=== PATIENT | female | born 1960 | race Caucasian/White ===

== ENCOUNTER 2018-10-05 08:00 | Outpatient (CLI) | payer MEDICAID | END 2018-10-05 09:00 | disposition home or self-care (01) | LOC: D.MAMMO 08:00 | DX: Z12.31 Encounter for screening mammogram for malignant neoplasm of breast (principal) ==

== ENCOUNTER → 2020-02-21 18:45 | Outpatient (CLI) | payer OTHER | END | disposition home or self-care (01) | LOC: D.MAMMO 02-07 08:30 | PROVIDERS: ATTEND Family Medicine | DX: Z12.31 Encounter for screening mammogram for malignant neoplasm of breast (principal) ==

== ENCOUNTER → 2020-03-06 08:45 | Outpatient (CLI) | payer OTHER | END | disposition home or self-care (01) | LOC: D.US 08:30 | PROVIDERS: ATTEND Family Medicine | DX: R92.8 Other abnormal and inconclusive findings on diagnostic imaging of breast (principal) ==

== ENCOUNTER → 2020-03-14 07:46 | Outpatient (CLI) | payer OTHER | END | disposition home or self-care (01) | LOC: D.US 07:46 | PROVIDERS: ATTEND Family Medicine | DX: R92.8 Other abnormal and inconclusive findings on diagnostic imaging of breast (principal) ==

== ENCOUNTER 2020-12-16 18:37 | Observation (INO) | payer OTHER ==
[~2020-12-16] VITALS: Ht 149.9 cm; Wt 102.3 kg
[2020-12-16] MEDS ORDERED: HYDROCHLOROTHIA25 MG (19:03)
[2020-12-16] MEDS ORDERED: COZAAR25 MG (19:04)
[2020-12-16] MEDS ORDERED: LEXAPRO10 MG PO (19:05)
[2020-12-16] MEDS ORDERED: VIBRAMYCIN50 MG/5 ML (19:05)
--- NOTE | 2020-12-16 19:11 | NUR ---
PT REPORT TO ABY NESBITT
[2020-12-16 19:27] LABS: BASOPHILS 0.2 % (0-2); EOSINOPHILS 0.9 % (0-7); HEMATOCRIT 38.6 % (36.0-48.0); HEMOGLOBIN 13.2 g/dL (12-16); IMMATURE GRANULOCYTES 0.2 % (0-5); LYMPHOCYTE ABS# 1.39 10x3/uL (1.18-3.74); LYMPHOCYTES 10.5 % (15-50); MCH 30.2 pg (26.0-34.0); MCHC 34.2 g/dL (31.0-37.0); MCV 88.3 fL (80.0-100.0); MEAN PLATELET VOLUME 9.2 fL (7.4-10.4); MONOCYTES 5.4 % (2-11); NEUTROPHIL ABS# 10.99 10x3/uL (1.56-6.13); NEUTROPHILS 82.8 % (40-80); PLATELET COUNT 246 10x3/uL (130-400); RBC 4.37 10x6/uL (4.00-5.40); RDW 12.1 % (11.5-14.5); WBC 13.3 10x3/uL (4.8-10.8)
[2020-12-16 19:35] LABS: APTT 31.7 SECONDS (22.8-39.4); CALC OSMOLALITY 251 mosm/kg (275-300); CALCIUM 9.1 mg/dL (8.5-10.1); CARBON DIOXIDE 27.5 mmol/L (21.0-32.0); CHLORIDE - SERUM 92 mmol/L (98-107); CREATININE - SERUM 0.6 mg/dL (0.6-1.3); GLUCOSE 100 mg/dL (74-106); INR 1.04 (0.85-1.17); POTASSIUM - SERUM 3.5 mmol/L (3.5-5.1); PROTIME 12.6 SECONDS (11.6-15.0); SODIUM 125 mmol/L (136-145); UREA NITROGEN 12 mg/dL (7-18); eGFR NON AFRICAN AMERICAN > 90 mL/min (90-120)
[2020-12-16 19:43] LABS: ALBUMIN 4.2 g/dL (3.4-5.0); ALKALINE PHOSPHATASE 72 U/L (30-120); ALT (SGPT) 29 U/L (10-68); BILIRUBIN - TOTAL 0.45 mg/dL (0.2-1.3); PROTEIN - SERUM 7.5 g/dL (6.4-8.2)
[2020-12-16 23:01] VITALS: BP 109/43; Ht 149.9 cm; Wt 102.3 kg
[2020-12-16] MEDS ORDERED: ASPIRIN81 MG PO (23:16)
[2020-12-16] MEDS ORDERED: VITAMIN D325 MC1 PO (23:17)
[2020-12-16 23:35] LABS: CKMB 2.9 U/L (0.0-3.6); CREATINE KINASE 155 UL (21-215); MAGNESIUM - SERUM 1.8 mg/dL (1.8-2.4); TROPONIN-I < 0.017 ng/mL (0.000-0.060)
[2020-12-17] VITALS (10 sets, daily range): BP systolic 109–145; BP diastolic 43–94
--- NOTE | 2020-12-17 07:55 | NUR ---
PT RESTING QUIETLY IN BED. RESP EVEN AND UNLABORED. PT REPORTS PAIN TO RIGHT LOWER EXTREMITY 6/10 AT THIS TIME. DISCUSSED NEXT TIME PAIN MEDICATION COULD BE ADMINISTERED PER MD ORDERS. PT VOICES UNDERSTANDING AT THIS TIME. IV TO LEFT WRIST WITH NS @ 100ML/HR INFUSING VIA PUMP. SITE WITHOUT REDNESS OR EDEMA. CASTING WITH CARLINE WRAP TO RIGHT LOWER EXTREMITY IN PLACE. TOES WARM TO TOUCH GOOD CAP REFILL. DENIES FURTHER NEEDS AT THIS TIME. CL WITHIN REACH. ENCOURAGED TO CALL WITH NEEDS. CONTINUE POC
[2020-12-17 10:08] LABS: BASOPHILS 0.6 % (0-2); HEMATOCRIT 35.5 % (36.0-48.0); HEMOGLOBIN 11.6 g/dL (12-16); LYMPHOCYTE ABS# 1.33 10x3/uL (1.18-3.74); LYMPHOCYTES 25.1 % (15-50); MCH 29.4 pg (26.0-34.0); MCHC 32.7 g/dL (31.0-37.0); MCV 89.9 fL (80.0-100.0); MEAN PLATELET VOLUME 9.2 fL (7.4-10.4); MONOCYTES 8.9 % (2-11); NEUTROPHILS 62.4 % (40-80); PLATELET COUNT 228 10x3/uL (130-400); RBC 3.95 10x6/uL (4.00-5.40); RDW 12.3 % (11.5-14.5)
[2020-12-17 10:24] LABS: WBC 5.3 10x3/uL (4.8-10.8)
[2020-12-17 10:25] LABS: APTT 31.4 SECONDS (22.8-39.4); INR 1.08 (0.85-1.17)
[2020-12-17 10:33] LABS: ALBUMIN 3.5 g/dL (3.4-5.0); ALKALINE PHOSPHATASE 60 U/L (30-120); ALT (SGPT) 26 U/L (10-68); CALC OSMOLALITY 261 mosm/kg (275-300); CALCIUM 8.4 mg/dL (8.5-10.1); CARBON DIOXIDE 26.1 mmol/L (21.0-32.0); CHLORIDE - SERUM 98 mmol/L (98-107); CREATININE - SERUM 0.7 mg/dL (0.6-1.3); GLUCOSE 101 mg/dL (74-106); POTASSIUM - SERUM 3.9 mmol/L (3.5-5.1); PROTEIN - SERUM 6.6 g/dL (6.4-8.2); SODIUM 131 mmol/L (136-145); UREA NITROGEN 11 mg/dL (7-18); eGFR NON AFRICAN AMERICAN 90 mL/min (90-120)
--- NOTE | 2020-12-17 20:40 | NUR ---
ANESTHESIA AT BEDSIDE FOR NERVE BLOCK TO LT LEG
--- NOTE | 2020-12-17 21:21 | NUR ---
REC'D PATIENT TO ROOM 1210 FROM RECOVERY. PATIENT A&O AT THIS TIME. PATIENT ON 3L OXYGEN, VSS. ELEVATED RLE X2 PILLOWS AND PLACED LARGE ICE PACK. PLACED SCD TO LEFT LEG. PATIENT DENIES OTHER NEEDS AT THIS TIME.
--- NOTE | 2020-12-17 22:45 | NUR ---
ADMINISTERED MEDS PER ORDERS. PATIENT JIAN WELL. ENCOURAGED TO CALL WITH NEEDS.
[2020-12-18 00:05] VITALS: BP 136/55
[2020-12-18 00:42] VITALS: BP 107/44
[2020-12-18 02:05] VITALS: BP 134/68
[2020-12-18 04:00] VITALS: BP 132/70
--- NOTE | 2020-12-18 06:45 | NUR ---
PT RESTING QUIETLY IN BED WITH RIGHT LOWER EXTREMITY ELEVATED. PT REPORTS PAIN 5/10 AT THIS TIME. RIGHT LOWER EXTREMITY WARM TO TOUCH, PT ABLE TO MOVE LOWER EXTREMITY. DRESSING C/D/I. IV TO LEFT HAND WITH 1/2 NS @ 50ML/HR INFUSING VIA PUMP. SITE WITHOUT REDNESS OR EDEMA. DENIES FURTHER NEEDS AT THIS TIME. CL WITHIN REACH. ENCOURAGED TO CALL WITH NEEDS. CONTINUE POC
[2020-12-18 07:15] LABS: ALBUMIN 3.4 g/dL (3.4-5.0); ALKALINE PHOSPHATASE 56 U/L (30-120); ALT (SGPT) 25 U/L (10-68); BILIRUBIN - TOTAL 0.35 mg/dL (0.2-1.3); CALC OSMOLALITY 267 mosm/kg (275-300); CARBON DIOXIDE 25.5 mmol/L (21.0-32.0); CHLORIDE - SERUM 100 mmol/L (98-107); CREATININE - SERUM 0.7 mg/dL (0.6-1.3); GLUCOSE 145 mg/dL (74-106); PROTEIN - SERUM 6.3 g/dL (6.4-8.2); SODIUM 133 mmol/L (136-145); UREA NITROGEN 10 mg/dL (7-18); eGFR NON AFRICAN AMERICAN 90 mL/min (90-120)
[2020-12-18 07:16] LABS: POTASSIUM - SERUM 4.5 mmol/L (3.5-5.1)
[2020-12-18 07:26] LABS: BASOPHILS 0 % (0-2); EOSINOPHILS 0 % (0-7); HEMATOCRIT 35.1 % (36.0-48.0); HEMOGLOBIN 11.3 g/dL (12-16); IMMATURE GRANULOCYTES 0.1 % (0-5); LYMPHOCYTE ABS# 0.51 10x3/uL (1.18-3.74); LYMPHOCYTES 6.7 % (15-50); MCH 29.5 pg (26.0-34.0); MCHC 32.2 g/dL (31.0-37.0); MCV 91.6 fL (80.0-100.0); MEAN PLATELET VOLUME 9.7 fL (7.4-10.4); MONOCYTES 2.9 % (2-11); NEUTROPHIL ABS# 6.91 10x3/uL (1.56-6.13); NEUTROPHILS 90.3 % (40-80); PLATELET COUNT 252 10x3/uL (130-400); RBC 3.83 10x6/uL (4.00-5.40); RDW 12.4 % (11.5-14.5); WBC 7.7 10x3/uL (4.8-10.8)
--- NOTE | 2020-12-18 07:44 | OP ---
PATIENT NAME: VALENTINE DOE MEDICAL RECORD: [id number] :56 LOCATION:D.M3 D.1210 ADMISSION DATE:12/16/20 SURGEON: HERO CAMEJO DO DATE OF OPERATION: 12/16/2020 PROCEDURE PERFORMED: Right bimalleolar ankle open reduction internal fixation. PREOPERATIVE DIAGNOSIS: Right bimalleolar ankle fracture. POSTOPERATIVE DIAGNOSIS: Right bimalleolar ankle fracture. INDICATIONS: Ms. Doe is a 60-year-old female who slipped in the mud yesterday and sustained an ankle bimalleolar fracture came to the ER, later in the evening and she was admitted overnight for pain control and for surgery today. I talked to her that we need to fix this due to the fact it was a bimalleolar fracture and very displaced, had some lateral subluxation of the talus. She is aware of the risks including infection, bleeding, damage to nerves in the area, including superficial peroneal nerve, malunion, nonunion, blood clots and even , failure of implants and she signed the consent. SURGEON: Hero Camejo MD DESCRIPTION OF PROCEDURE: The patient was taken to the operative suite, laid in the supine position, given general anesthetic and intubated. She was given 2 grams of Ancef preoperatively. The right lower extremity was prepped and draped in sterile fashion. Timeout was performed and everyone was in agreeance with the correct side, site, patient and procedure. I then exsanguinated the right lower extremity with an Esmarch, the tourniquet was inflated to 350 mmHg, was up for 30 minutes. I then made an incision along the lateral ankle over the fibula, made careful dissection down to the fracture, reduced it with a clamp. Placed a 6-hole Javad stainless steel plate on and locked it with 4 locking screws distally and then 3 shaft screws proximally, reduced the fracture and holding it nicely after the plate was confirmed to be in good position on AP and lateral. I then went to the medial side, but 2 percutaneous screws in the medial malleolus medially holding the medial malleolus reduced nicely. I then put a 44 and 42 cannulated screws. I put K-wires which were confirmed to be in good position on AP and lateral and having a nice reduction, reduced the medial malleolus very nicely. I then went to the lateral side again and put a clamp on the ankle joint with the foot in dorsiflexion, drilled and put a ZipTight across the ankle syndesmosis and cinched it down. I then stressed the syndesmosis and she did not have any medial clear space widening. I then got in lateral to ensure the hardware was in good position and it was. I then had removed all the K-wires and let the tourniquet down at 30 minutes. Pelon Heck, certified surgical bakery assistant then irrigated the incision and closed with 2-0 Vicryl in an inverted fashion on the lateral side and put Zipline on that, medial side with 2 poke holes, closed with 4-0 Monocryl in simple fashion. She then dressed with Adaptic, 4 x 4s, ABD on the heel and over the incision. A cast padding, Kerlix, cast padding and another layer of Kerlix and put a 4 x 30 splint on and secured with 6-inch Tony wrap. She was then awakened and taken to recovery in stable condition. BLOOD LOSS: Minimal. COMPLICATIONS: None. OPERATIVE REPORT [id number] VALENTINE DOE TRANSINT:[id number] Voice Confirmation ID: [id number] DOCUMENT ID: [id number] HERO CAMEJO DO at 0744 CC: [id number] DICTATION DATE: 12/17/202002 PATIENT FINANCIAL REPRESENTATIVE: 12/18/20 0452 ADM IN [facility] [address] [place] [address]
[2020-12-18 08:11] VITALS: BP 122/61
[2020-12-18] MEDS ORDERED: PERCOCET 5-3251 TAB PO (11:11)
[2020-12-18] MEDS ORDERED: BAYER CHEWABLE81 MG PO (11:11)
[2020-12-18] MEDS ORDERED: VISTARIL50 MG PO (11:11)
--- NOTE | 2020-12-18 12:34 | MORECARE ---
CASE MANAGEMENT DISCHARGE SUMMARY PATIENT: VALENTINE ABAD UNIT: [id number] ADM DATE: 12/16/20 AGE: 60 : 56 SEX: F ROOM/BED: D.1210 AUTHOR: PENNY LORENZO PHYSICIAN: REFERRING PHYSICIAN: JAKE SCOTT MD DATE OF SERVICE: 12/18/20 Discharge Plan Patient Name: VALENTINE ABAD Facility: [facility]:[place] : 1960 Planned Disposition: Home or Self Care Anticipated Discharge Date: Discharge Date: Expected LOS: Initial Reviewer: [email or web address] Initial Review Date: 12/16/2020 Generated: 12/18/20 1:34 pm External Providers External Provider: [employer] [facility] Next Contact Date: Service Request Date: Service Type: Resolution: Reviewer: Comments: [facility] Next Contact Date: Service Request Date: Service Type: Resolution: Reviewer: Comments: Patient Name: VALENTINE ABAD Page [phone] at 1234 All edits/amendments must be made on the electronic document DICTATION DATE: 12/18/20 1234 FIREWALL ENGINEER: WILLIAN 12/18/20 1234 RPT#: [id number] DC DATE: STATUS: ADM IN [facility] [address] [place] [address] END OF REPORT
--- NOTE | 2020-12-18 12:41 | MORECARE ---
CASE MANAGEMENT DISCHARGE SUMMARY PATIENT: VALENTINE ABAD UNIT: [id number] ADM DATE: 12/16/20 AGE: 60 : 56 SEX: F ROOM/BED: D.1210 AUTHOR: PENNY LORENZO PHYSICIAN: REFERRING PHYSICIAN: JAKE SCOTT MD DATE OF SERVICE: 12/18/20 Discharge Plan Patient Name: VALENTINE ABAD Facility: [facility]:[place] : 1960 Planned Disposition: Home or Self Care Anticipated Discharge Date: Discharge Date: Expected LOS: Initial Reviewer: [email or web address] Initial Review Date: 12/16/2020 Generated: 12/18/20 1:41 pm DCPIA - Discharge Planning Initial Assessment Updated by [email or web address]: Columba Motta on 12/18/20 12:35 pm * Is the patient Alert and Oriented? Yes * How many steps to enter\exit or inside your home? * PCP MARIA D * Pharmacy [facility] * Preadmission Environment Home with Family * ADLs Independent * Equipment None * List name and contact numbers for known caregivers / representatives who currently or will assist patient after discharge: DREW ( SPOUSE) [phone] * Verbal permission to speak to the caregivers and representatives has been obtained from the patient. N/A * Community resources currently utilized None * Additional services required to return to the preadmission environment? No * Can the patient safely return to the preadmission environment? Yes * Has this patient been hospitalized within the prior 30 days at any hospital? No Last DP export: 12/18/20 11:34 am Patient Name: VALENTINE ABAD Page [id number] at 1241 All edits/amendments must be made on the electronic document DICTATION DATE: 12/18/20 1241 WIRER: WILLIAN 12/18/20 1241 RPT#: [id number] DC DATE: STATUS: ADM IN [facility] [address] [place] [address] END OF REPORT
--- NOTE | 2020-12-18 12:55 | MORECARE ---
CASE MANAGEMENT DISCHARGE SUMMARY PATIENT: VALENTINE ABAD UNIT: [id number] ADM DATE: 12/16/20 AGE: 60 : 56 SEX: F ROOM/BED: D.1210 AUTHOR: PENNY LORENZO PHYSICIAN: REFERRING PHYSICIAN: JAKE SCOTT MD DATE OF SERVICE: 12/18/20 Discharge Plan Patient Name: VALENTINE ABAD Facility: [facility]:[place] : 1960 Planned Disposition: Home or Self Care Anticipated Discharge Date: Discharge Date: Expected LOS: Initial Reviewer: [email or web address] Initial Review Date: 12/16/2020 Generated: 12/18/20 1:55 pm Comments DCP- Discharge Planning Updated by [email or web address]: Columba Motta on 12/18/20 11:[address] Patient Name: VALENTINE ABAD Admission Status: ER Accout number: [id number] Admission Date: 12-16-2020 : 1960 Admission Diagnosis: Attending: JAKE SCOTT Current LOS: 2 Anticipated DC Date: Planned Disposition: Home or Self Care Primary Insurance: [employer] INS EXCHANGE Discharge Planning Comments: CM met with patient to complete initial dc planning assessment. CM educated patient on the CM role and verbal consent given by patient to complete assessment. Patient lives at home with her where she was very independent with her care. At discharge patient plans to return home and feels this is a safe discharge. CM discussed availability of home health, rehab services, and medical equipment. Patient is adamant that she is going home and not going to [place] with her daughter. She stated that her will be with her at all times. She will be staying with her mother in law [address] is built at her home. That should happen tomorrow. She has alot of support at home from friends and family. She said she has access to a wheelchair, transfer chair, crutches. Her daughter has ordered a knee walker that should be delivered to her home today, I spoke with the patient about the need for a walker vs a rollator. The safest would be a walker for her home at this point. She thinks that she needs a walker and NOT a rollator like her daughter wants her to have. We talked about home health, PT, life alert. She is agreeable to if her insurance covers if 100%. I have reached out to [facility] to make sure of this. I have also sent a order to [employer] for a walker and that will be delivered to her hospital room. Patient stated that her daughters have good intentions but she is her own decision maker and will make the decisions for her. If her insurance does not cover HH at 100% she does not want it. She said her can help her with everything and is also willing to do so. Patient denied known discharge needs at this time. CM will continue to follow and will assist as needed with dc plans/needs Social Media Marketing Manager: Columba Motta DCPIA - Discharge Planning Initial Assessment Updated by [email or web address]: Columba Motta on 12/18/20 12:35 pm * Is the patient Alert and Oriented? Yes * How many steps to enter\exit or inside your home? * PCP MARIA D * Pharmacy [facility] * Preadmission Environment Home with Family * ADLs Independent * Equipment None * List name and contact numbers for known caregivers / representatives who currently or will assist patient after discharge: DREW ( SPOUSE) [phone] * Verbal permission to speak to the caregivers and representatives has been obtained from the patient. N/A * Community resources currently utilized None * Additional services required to return to the preadmission environment? No * Can the patient safely return to the preadmission environment? Yes * Has this patient been hospitalized within the prior 30 days at any hospital? No Last DP export: 12/18/20 11:41 am Patient Name: VALENTINE ABAD Page [phone] at 1255 All edits/amendments must be made on the electronic document DICTATION DATE: 12/18/20 1255 SHANK RANDER: WILLIAN 12/18/20 1255 RPT#: [id number] DC DATE: STATUS: ADM IN [facility] [address] [place] [address] END OF REPORT
--- NOTE | 2020-12-19 07:11 | MORECARE ---
CASE MANAGEMENT DISCHARGE SUMMARY PATIENT: VALENTINE ABAD UNIT: [id number] ADM DATE: 12/16/20 AGE: 60 : 56 SEX: F ROOM/BED: D.1210 AUTHOR: MAURADOC PHYSICIAN: REFERRING PHYSICIAN: JAKE SCOTT MD DATE OF SERVICE: 12/19/20 Discharge Plan Patient Name: VALENTINE ABAD Facility: [facility]:[place] : 1960 Planned Disposition: Home or Self Care Anticipated Discharge Date: Discharge Date: 12/18/2020 Expected LOS: 0 Initial Reviewer: [email or web address] Initial Review Date: 12/16/2020 Generated: 12/19/20 8:10 am DCP- Discharge Planning Updated by [email or web address]: Columba Motta on 12/18/20 11:[address] Patient Name: VALENTINE ABAD Admission Status: ER Accout number: [id number] Admission Date: 12-16-2020 : 1960 Admission Diagnosis: Attending: JAKE SCOTT Current LOS: 2 Anticipated DC Date: Planned Disposition: Home or Self Care Primary Insurance: [employer] INS EXCHANGE Discharge Planning Comments: CM met with patient to complete initial dc planning assessment. CM educated patient on the CM role and verbal consent given by patient to complete assessment. Patient lives at home with her where she was very independent with her care. At discharge patient plans to return home and feels this is a safe discharge. CM discussed availability of home health, rehab services, and medical equipment. Patient is adamant that she is going home and not going to [place] with her daughter. She stated that her will be with her at all times. She will be staying with her mother in law [address] is built at her home. That should happen tomorrow. She has alot of support at home from friends and family. She said she has access to a wheelchair, transfer chair, crutches. Her daughter has ordered a knee walker that should be delivered to her home today, I spoke with the patient about the need for a walker vs a rollator. The safest would be a walker for her home at this point. She thinks that she needs a walker and NOT a rollator like her daughter wants her to have. We talked about home health, PT, life alert. She is agreeable to if her insurance covers if 100%. I have reached out to [employer] to make sure of this. I have also sent a order to [employer] for a walker and that will be delivered to her hospital room. Patient stated that her daughters have good intentions but she is her own decision maker and will make the decisions for her. If her insurance does not cover HH at 100% she does not want it. She said her can help her with everything and is also willing to do so. Patient denied known discharge needs at this time. CM will continue to follow and will assist as needed with dc plans/needs Organ Pipe Voicer: Columba Motta DCPIA - Discharge Planning Initial Assessment Updated by [email or web address]: Columba Motta on 12/18/20 12:35 pm * Is the patient Alert and Oriented? Yes * How many steps to enter\exit or inside your home? * PCP MARIA D * Pharmacy [facility] * Preadmission Environment Home with Family * ADLs Independent * Equipment None * List name and contact numbers for known caregivers / representatives who currently or will assist patient after discharge: DREW ( SPOUSE) [phone] * Verbal permission to speak to the caregivers and representatives has been obtained from the patient. N/A * Community resources currently utilized None * Additional services required to return to the preadmission environment? No * Can the patient safely return to the preadmission environment? Yes * Has this patient been hospitalized within the prior 30 days at any hospital? No Last DP export: 12/18/20 11:55 am Patient Name: VALENTINE ABAD Page 12235 at 0711 All edits/amendments must be made on the electronic document DICTATION DATE: 12/19/20709 BARREL RIBS SOLDERER: WILLIAN 12/19/20709 RPT#: [id number] DC DATE:12/18/20 STATUS: DIS IN [address] [place] [address] END OF REPORT
--- NOTE | 2020-12-19 07:18 | MORECARE ---
CASE MANAGEMENT DISCHARGE SUMMARY PATIENT: VALENTINE ABAD UNIT: [id number] ADM DATE: 12/16/20 AGE: 60 : 56 SEX: F ROOM/BED: D.1210 AUTHOR: MAURADOC PHYSICIAN: REFERRING PHYSICIAN: JAKE SCOTT MD DATE OF SERVICE: 12/19/20 Discharge Plan Patient Name: VALENTINE ABAD Facility: [facility]:[place] : 1960 Planned Disposition: Home or Self Care Anticipated Discharge Date: Discharge Date: 12/18/2020 Expected LOS: 0 Initial Reviewer: [id number] Initial Review Date: 12/16/2020 Generated: 12/19/20 8:17 am DCP- Discharge Planning Updated by [email or web address]: Columba Motta on 12/18/20 11:[address] Patient Name: VALENTINE ABAD Admission Status: ER Accout number: [id number] Admission Date: 12-16-2020 : 1960 Admission Diagnosis: Attending: JAKE SCOTT Current LOS: 2 Anticipated DC Date: Planned Disposition: Home or Self Care Primary Insurance: [employer] INS EXCHANGE Discharge Planning Comments: CM met with patient to complete initial dc planning assessment. CM educated patient on the CM role and verbal consent given by patient to complete assessment. Patient lives at home with her where she was very independent with her care. At discharge patient plans to return home and feels this is a safe discharge. CM discussed availability of home health, rehab services, and medical equipment. Patient is adamant that she is going home and not going to [place] with her daughter. She stated that her will be with her at all times. She will be staying with her mother in law [address] is built at her home. That should happen tomorrow. She has alot of support at home from friends and family. She said she has access to a wheelchair, transfer chair, crutches. Her daughter has ordered a knee walker that should be delivered to her home today, I spoke with the patient about the need for a walker vs a rollator. The safest would be a walker for her home at this point. She thinks that she needs a walker and NOT a rollator like her daughter wants her to have. We talked about home health, PT, life alert. She is agreeable to if her insurance covers if 100%. I have reached out to [employer] to make sure of this. I have also sent a order to [employer] for a walker and that will be delivered to her hospital room. Patient stated that her daughters have good intentions but she is her own decision maker and will make the decisions for her. If her insurance does not cover HH at 100% she does not want it. She said her can help her with everything and is also willing to do so. Patient denied known discharge needs at this time. CM will continue to follow and will assist as needed with dc plans/needs Commercial Property Manager: Columba Motta DCPIA - Discharge Planning Initial Assessment Updated by [id number]: Columba Motta on 12/18/20 12:35 pm * Is the patient Alert and Oriented? Yes * How many steps to enter\exit or inside your home? * PCP MARIA D * Pharmacy [facility] * Preadmission Environment Home with Family * ADLs Independent * Equipment None * List name and contact numbers for known caregivers / representatives who currently or will assist patient after discharge: DREW ( SPOUSE) [phone] * Verbal permission to speak to the caregivers and representatives has been obtained from the patient. N/A * Community resources currently utilized None * Additional services required to return to the preadmission environment? No * Can the patient safely return to the preadmission environment? Yes * Has this patient been hospitalized within the prior 30 days at any hospital? No Last DP export: 12/18/20 11:55 am Patient Name: VALENTINE ABAD Page [id number] at 0718 All edits/amendments must be made on the electronic document DICTATION DATE: 12/19/20717 INTERMISSION COORDINATOR: WILLIAN 12/19/20717 RPT#: [id number] DC DATE:12/18/20 STATUS: DIS IN [facility] [address] [place] [address] END OF REPORT
--- NOTE | 2020-12-19 07:34 | MORECARE ---
CASE MANAGEMENT DISCHARGE SUMMARY PATIENT: VALENTINE ABAD UNIT: [id number] ADM DATE: 12/16/20 AGE: 60 : 56 SEX: F ROOM/BED: D.1210 AUTHOR: MAURA,DOC PHYSICIAN: REFERRING PHYSICIAN: JAKE SCOTT MD DATE OF SERVICE: 12/19/20 Discharge Plan Patient Name: VALENTINE ABAD Facility: [facility]:[place] : 1960 Planned Disposition: Home or Self Care Anticipated Discharge Date: Discharge Date: 12/18/2020 Expected LOS: 0 Initial Reviewer: [email or web address] Initial Review Date: 12/16/2020 Generated: 12/19/20 8:34 am Comments DCP- Discharge Planning Updated by [email or web address]: Columba Motta on 12/19/20 6:[address] RAY WITH [employer] CALLED AND STATED THAT THE PATIENT WOULD HAVE A 40% COPAY PER VISIT, SO SHE WILL NOT GET HOME HEALTH. DCP- Discharge Planning Updated by [email or web address]: Columba Motta on 12/18/20 11:[address] Patient Name: VALENTINE ABAD Admission Status: ER Accout number: [id number] Admission Date: 12-16-2020 : 1960 Admission Diagnosis: Attending: JAKE SCOTT Current LOS: 2 Anticipated DC Date: Planned Disposition: Home or Self Care Primary Insurance: [employer] [facility] INS EXCHANGE Discharge Planning Comments: CM met with patient to complete initial dc planning assessment. CM educated patient on the CM role and verbal consent given by patient to complete assessment. Patient lives at home with her where she was very independent with her care. At discharge patient plans to return home and feels this is a safe discharge. CM discussed availability of home health, rehab services, and medical equipment. Patient is adamant that she is going home and not going to [place] with her daughter. She stated that her will be with her at all times. She will be staying with her mother in law [address] is built at her home. That should happen tomorrow. She has alot of support at home from friends and family. She said she has access to a wheelchair, transfer chair, crutches. Her daughter has ordered a knee walker that should be delivered to her home today, I spoke with the patient about the need for a walker vs a rollator. The safest would be a walker for her home at this point. She thinks that she needs a walker and NOT a rollator like her daughter wants her to have. We talked about home health, PT, life alert. She is agreeable to if her insurance covers if 100%. I have reached out to [facility] to make sure of this. I have also sent a order to [employer] for a walker and that will be delivered to her hospital room. Patient stated that her daughters have good intentions but she is her own decision maker and will make the decisions for her. If her insurance does not cover HH at 100% she does not want it. She said her can help her with everything and is also willing to do so. Patient denied known discharge needs at this time. CM will continue to follow and will assist as needed with dc plans/needs Php Consultant: Columba Motta DCPIA - Discharge Planning Initial Assessment Updated by [email or web address]: Columba Motta on 12/18/20 12:35 pm * Is the patient Alert and Oriented? Yes * How many steps to enter\exit or inside your home? * PCP MARIA D * Pharmacy [facility] * Preadmission Environment Home with Family * ADLs Independent * Equipment None * List name and contact numbers for known caregivers / representatives who currently or will assist patient after discharge: DREW ( SPOUSE) [phone] * Verbal permission to speak to the caregivers and representatives has been obtained from the patient. N/A * Community resources currently utilized None * Additional services required to return to the preadmission environment? No * Can the patient safely return to the preadmission environment? Yes * Has this patient been hospitalized within the prior 30 days at any hospital? No Last DP export: 12/19/20 6:18 am Patient Name: VALENTINE ABAD Page [id number] at 0734 All edits/amendments must be made on the electronic document DICTATION DATE: 12/19/20733 OPERATING ROOM AIDE: WILLIAN 12/19/20733 RPT#: [id number] DC DATE:12/18/20 STATUS: DIS IN [facility] [address] [place] [address] END OF REPORT
== END 2020-12-18 16:46 | disposition home or self-care (01) ==
LOC: D.ER 18:37 → D.EDHOLD 20:33 → D.M3 20:33 → OBSVTIME 20:34 → D.M3 20:35
PROVIDERS: Emergency Medicine; Family Medicine; ADMIT Emergency Medicine; ATTEND Emergency Medicine
DX: I10 Essential (primary) hypertension (principal); S82.841A Displaced bimalleolar fracture of right lower leg, initial encounter for closed fracture; D72.829 Elevated white blood cell count, unspecified; E87.1 Hypo-osmolality and hyponatremia; G47.00 Insomnia, unspecified; W01.10XA Fall on same level from slipping, tripping and stumbling with subsequent striking against unspecified object, initial encounter; Y93.9 Activity, unspecified; Y92.9 Unspecified place or not applicable